=== PATIENT | female | born 1980 | race Caucasian/White ===

== ENCOUNTER 2019-09-20 00:37 | Emergency (ER) | payer OTHER, SELFPAY ==
[2019-09-20] VITALS (7 sets, daily range): BP systolic 132–157; BP diastolic 89–99; PULSE 80–89; RESP 14–19; TEMP 36.6–36.8; O2SAT 94–100
--- NOTE | ~2019-09-20 | CT_ITS ---
EXAMINATION: CT brain wo con DATE: 09/20/2019 01:05 INDICATION: Left arm numbness and tingling. TECHNIQUE: Computed tomography (CT) of the head was performed without intravenous contrast. The mA wa s adjusted according to patient size. Iterative reconstruction technique was employed. The dose-lengt h product was 605.33 mGy-cm. COMPARISON: None FINDINGS: There is no intracranial hemorrhage, acute infarction, or abnormal intracranial mass lesion . The ventricles are normal in size. The paranasal sinuses are clear. The orbits are normal. The mast oid air cells are normal. IMPRESSION: 1. Normal brain. Reviewed, dictated and finalized at location A. IMPRESSION: 1. Normal brain.
--- NOTE | ~2019-09-20 | XR_ITS ---
EXAMINATION: XR chest 1V portable DATE: 09/20/2019 01:09 INDICATION: Chest pain. Shortness of breath. TECHNIQUE: A single frontal view of the chest was obtained. COMPARISON: Chest CT 09/20/2019 FINDINGS: The chest demonstrates clear lungs without pneumonia, pleural effusion, or pneumothorax. Th e heart size is normal. IMPRESSION: 1. No acute cardiopulmonary disease. Reviewed, dictated and finalized at location A.
--- NOTE | ~2019-09-20 | CT_ITS ---
EXAMINATION: CTA chest PE protocol DATE: 09/20/2019 01:45 INDICATION: Chest pain. TECHNIQUE: Computed tomography angiography (CTA) of the chest was performed with 100 mL Omnipaque-350 intravenous contrast timed to evaluate the pulmonary arteries. Coronal maximum intensity projection 3D-reconstructions were created by the technologist. Automated exposure control and iterative reconst ruction technique were employed. The dose-length product was 725.81 mGy-cm. COMPARISON: Chest single view 09/20/2019 FINDINGS: There is mild atelectasis in right lower lobe and lingula. No pleural effusion. The heart s ize is normal. No pericardial effusion. There is no pulmonary embolus. At C6, there is an esophageal diverticulum on the left. There is a small sliding hiatal hernia. There is mild thoracic spondylosis. IMPRESSION: 1. No pulmonary embolus. 2. Esophageal diverticulum on the left at C6. 3. Small sliding hiatal hernia. Reviewed, dictated and finalized at location A.
--- NOTE | 2019-09-20 00:49 | ED.CHESTPAIN ---
HPI - Chest Pain General Chief Complaint: Chest Pain Stated Complaint: left side numbness/chest pain Time Seen by Provider: 09/20/19 00:48 Source: patient and RN notes reviewed Mode of arrival: ambulatory Limitations: no limitations History of Present Illness HPI narrative: Pt is a 38 y/o female who presents to the ED with c/o lt sided chest pain starting this morning. She notes that she felt normal throughout the day yesterday. Pt states that she was laying down to go to sleep roughly 1 hour ago, when she suddenly developed pain in the lt side of her chest and numbness/tingling in her lt arm and lt leg. She describes her pain as a pressure and her numbness as pins and needles. Pt states that she has been able to walk normally. She also currently reports nausea, but denies any fever or chills. Pt states that she has had HTN in the past, but notes that she isn't currently taking any BP medications. MD complaint: chest pain Onset (ago): hour(s) (1) Onset: during rest Pain location: left chest Quality: other (pressure) Associated symptoms: nausea and other (numbness/tingling in lt arm and lt leg) Treatment prior to arrival: none Related Data Home Medications Medication Instructions Recorded Confirmed metformin 500 mg PO BID 09/20/19 09/20/19 Allergies Allergy/AdvReac Type Severity Reaction Status Date / Time ciprofloxacin AdvReac Rash Verified 09/20/19 02:18 Review of Systems Review of Systems: All systems reviewed & are unremarkable except as noted in HPI and below Constitutional: Constitutional: Denies chills and Denies fever(s) Cardiovascular: Cardiovascular: Reports chest pain (lt sided chest pressure) Gastrointestinal: Gastrointestinal: Reports nausea Neurologic: Reports numbness (lt arm and lt leg) and Reports tingling (lt arm and lt leg) [facility] Past Medical History Medical History (Updated 09/20/19 @ 04:26 by Justice Rachel DO) PCOS (polycystic ovarian syndrome) Surgical History Surgical History No significant past surgical history Family History Family History (Updated 04/16/18 @ 10:29 by DOCTOR UNKNOWN) Mother Hypertension Family history of alcoholism Father Hypertension Social History Social History Smoking status: Never smoker Alcohol intake: never Gender identity (if verbalized by the patient): Female Exam Narrative: Exam Narrative: APPEARANCE: No acute distress, nontoxic, resting in bed HEENT: Normocephalic, atraumatic, OMM, TMs clear bilaterally EYES: PERRL, EOMI NECK: Supple, nontender, full range of motion without pain, no meningismus RESPIRATORY: No respiratory distress, clear to auscultation bilaterally with no rhonchi wheezing or rales CARDIOVASCULAR: RRR s murmur ABDOMINAL: Soft, nontender, nondistended MUSCULOSKELETAL: Moves all extremities. No clubbing, cyanosis or edema. NEURO: A and O ?3, following commands, speech normal, cranial nerves II through XII grossly intact,muscle strength 5 out of 5 bilateral upper and lower extremities no pronator drift, pinprick sensation equal bilateral upper and lower extremities SKIN:: Warm, dry. Normal Color PSYCHIATRIC: Normal affect/mood Course Course Emergency Course: Patient with ABCD score of [address] Gagnon presentation work-up. At this time with current Covid pandemic recommends against admission with low ABCD score and recommends 3-hour troponin and patient be discharged with follow-up with her PCP Called discussed with Dr. Yanes presentation work-up. She agrees with plan for discharge and follow-up as an outpatient. Recommends patient be on aspirin 81 mg daily Discussed with patient results of workup and diagnosis. Discussed need for follow-up with primary care, proper use of medication, and reasons to return to the emergency department. Patient understands and agrees to current treatment plan Reevaluation(s)
--- NOTE | 2019-09-20 00:51 | ECG_ITS ---
Measurements Intervals [place] Rate: 83 P: [place]: 0 QRS: -25 QRSD: 101 T: 25 QT: 420 QTc: 495 Interpretive Statements SINUS RHYTHM VOLTAGE CRITERIA FOR LVH NONSPECIFIC ST & T-WAVE ABNORMALITY- INF/LAT LEADS BASELINE ARTIFACT- V6 ABNORMAL ECG Electronically Signed On 09-20-2019 7:03:03 CDT by Angus Potter D.O.
[2019-09-20 01:08] LABS: Basophils Absolute Auto 0.1 K/mm3 (0.0-0.1); Basophils Percent Auto 0.7 % (0.2-1.2); Eosinophils Absolute Auto 0.4 K/mm3 (0-0.3); Eosinophils Percent Auto 4.1 % (0-4.4); Hematocrit 41.8 % (37.0-47.0); Hemoglobin 13.7 g/dL (12.0-15.0); Immature Granulocyte Absolute 0.03 K/mm3 (0.00-0.031); Immature Granulocyte Percent A 0.4 % (0-0.5); Mean Corpuscular HGB Conc 32.8 g/dl (32-36); Mean Corpuscular Hemoglobin 28.3 pg (26-34); Mean Corpuscular Volume 86.4 fl (80-100); Mean Platelet Volume 9.6 fl (7.4-10.4); Monocytes Absolute Auto 0.6 K/mm3 (0.1-0.6); Monocytes Percent Auto 7.4 % (2.6-8.5); Neutrophils Percent Auto 46.4 % (45.5-73.1); Platelet Count Result 288 k/mm3 (150-375); Red Blood Count 4.84 M/mm3 (4.2-5.4); Red Cell Distribution Width 12.5 % (11.5-14.5); White Blood Count 8.5 K/mm3 (4.5-10.0)
[2019-09-20 01:10] LABS: INR 0.9; Prothrombin Time 11.6 Seconds (11.1-14.7)
[2019-09-20 01:11] LABS: Partial Thromboplastin Time 30.6 SECONDS (22.3-36.8)
[2019-09-20 01:16] LABS: Blood Urea Nitrogen 13 mg/dL (7-17); Carbon Dioxide 26 mmol/L (22-30); Chloride 102 mmol/L (98-107); Estimated CRCL calculation 106 ml/min; Estimated Glomerular Filt Rate > 60; Glucose 140 mg/dL (65-105); Potassium 3.3 mmol/L (3.4-5.0); Sodium 139 mmol/L (137-145)
[2019-09-20 01:27] LABS: Troponin I < 0.012 ng/mL (0.000-0.034)
[2019-09-20] MEDS: POTASSIUM CHLORIDE 20 MEQ TABLET PO (03:53)
[2019-09-20] MEDS: ASPIRIN 81 MG CHEWABLE TABLET 324 MG PO (03:53)
[2019-09-20 04:05] LABS: Troponin I < 0.012 ng/mL (0.000-0.034)
[2019-09-20 05:09] LABS: Cholesterol 208 mg/dL (0-200); HDL Direct 42 mg/dL; Triglycerides 101 mg/dL (<150)
[2019-09-20 05:17] LABS: Hemoglobin A1C 5.8 % (<5.7)
[2019-09-20 05:20] LABS: LDL Cholesterol Direct 137 mg/dL
== END 2019-09-20 04:40 | disposition home or self-care (01) ==
PROVIDERS: Emergency Provider Emergency Medicine; PCP Family Medicine
DX: R20.2 Paresthesia of skin (principal); R07.89 Other chest pain; E28.2 Polycystic ovarian syndrome; R94.31 Abnormal electrocardiogram [ECG] [EKG]; K22.5 Diverticulum of esophagus, acquired; K44.9 Diaphragmatic hernia without obstruction or gangrene
CPT/HCPCS: 36415; 70450; 71045; 71275; 80048; 80061; 82607; 83036; 84443; 84484; 85025; 85610; 85730; 93005; 99284; A9270; Q9967

== ENCOUNTER 2019-10-09 11:12 | Outpatient (CLI) | payer OTHER, SELFPAY ==
[2019-10-09 11:43] LABS: Blood Urea Nitrogen 10 mg/dL (7-17); Calcium 9.1 mg/dL (8.4-10.2); Carbon Dioxide 27 mmol/L (22-30); Chloride 105 mmol/L (98-107); Estimated Glomerular Filt Rate > 60; Glucose 102 mg/dL (65-105); Magnesium 1.9 mg/dL (1.6-2.3); Potassium 4.3 mmol/L (3.4-5.0); Sodium 139 mmol/L (137-145)
== END 2019-10-09 11:13 | disposition home or self-care (01) ==
PROVIDERS: PCP Family Medicine; Visit Provider Family Medicine
DX: I10 Essential (primary) hypertension (principal); E87.5 Hyperkalemia; R25.2 Cramp and spasm
CPT/HCPCS: 36415; 80048; 83735

== ENCOUNTER 2020-01-01 07:34 | Outpatient (CLI) | payer OTHER, SELFPAY ==
--- NOTE | ~2020-01-01 | NM_ITS ---
NM stress w perf spect multi Procedure: The patient was stressed using Modified Josse protocol. Prior to the end of exercise 31.5 mCi Tc 99m IV administered. Rest imaging performed following administration of 10.6 mCi Tc 99m IV. Images were reformatted into short axis, horizontal and vertical long axis sections for visual and q uantitative analysis. Indication: Chest pain Comparison: None Findings: Computer assisted qualitative and quantitative analysis of the immediate and delayed images revealed normal left ventricular perfusion without evidence of fixed or reversible perfusion abnorma lity to suggest ischemia or infarction. Normal left ventricular cavity size, wall motion and ejectio n fraction. Left ventricular ejection fraction measures 59. Impression: 1: No scintigraphic evidence of resting or stress induced perfusion abnormality. 2: Normal left ventricle ejection fraction measuring 59%. Reviewed, dictated and finalized at location B. Impression: 1: No scintigraphic evidence of resting or stress induced perfusion abnormality . 2: Normal left ventricle ejection fraction measuring 59%.
--- NOTE | 2020-01-01 09:18 | EST_ITS ---
Patient Info Name: Kavitha Brantley Age: 39 years : 1980 Gender: Female Ht: 65 in Wt: 191 lbs BSA: 2.02 m2 Exam Date: 01/01/2020 9:20 AM Exam Location: [facility] Stress Patient Status: Outpatient Admit Date: 01/01/2020 Staff Ordering Physician: Enedina Perdomo MD Attending Provider: Enedina Perdomo MD Exercise Technologist: Matti Momin RDCS, RT Exercise Physician: Angus Potter DO Exam Type: CA stress test treadmill w NM Study Info A treadmill exercise stress test was performed. Summary 1. 1. Negative Josse exercise stress test for ischemic ST changes by ECG criteria. 2. 2. Good functional capacity, achieving 11 METs of workload. 3. 3. Appropriate HR response to exercise. 4. 4. Appropriate HR recovery at 1 minute post exercise. 5. 5. Nuclear scan to follow and will be reported separately. Please correlate with it. 6. 6. Patient informed of the above results. Protocol: Josse Stress ECG Details Stage: REST Duration (min): 1 min : 16 sec Speed (mph): 0.0 Grade (%): 0 HR (bpm): 65 SBP (mmHg): 132 DBP (mmHg): 86 METS: --- Stage: REST Duration (min): 2 min : 38 sec Speed (mph): 0.0 Grade (%): 0 HR (bpm): 73 SBP (mmHg): 132 DBP (mmHg): 86 METS: --- Stage: STAGE 1 Duration (min): 1 min : 0 sec Speed (mph): 1.7 Grade (%): 10 HR (bpm): 98 SBP (mmHg): 132 DBP (mmHg): 86 METS: --- Stage: STAGE 1 Duration (min): 2 min : 0 sec Speed (mph): 1.7 Grade (%): 10 HR (bpm): 103 SBP (mmHg): 132 DBP (mmHg): 86 METS: --- Stage: STAGE 1 Duration (min): 3 min : 0 sec Speed (mph): 1.7 Grade (%): 10 HR (bpm): 103 SBP (mmHg): 150 DBP (mmHg): 74 METS: --- Stage: STAGE 2 Duration (min): 1 min : 0 sec Speed (mph): 2.5 Grade (%): 12 HR (bpm): 113 SBP (mmHg): 150 DBP (mmHg): 74 METS: --- Stage: STAGE 2 Duration (min): 2 min : 0 sec Speed (mph): 2.5 Grade (%): 12 HR (bpm): 127 SBP (mmHg): 153 DBP (mmHg): 70 METS: --- Stage: STAGE 2 Duration (min): 3 min : 0 sec Speed (mph): 2.5 Grade (%): 12 HR (bpm): 130 SBP (mmHg): 153 DBP (mmHg): 70 METS: --- Stage: STAGE 3 Duration (min): 1 min : 0 sec Speed (mph): 3.4 Grade (%): 14 HR (bpm): 138 SBP (mmHg): 136 DBP (mmHg): 87 METS: --- Stage: STAGE 3 Duration (min): 2 min : 0 sec Speed (mph): 3.4 Grade (%): 14 HR (bpm): 152 SBP (mmHg): 136 DBP (mmHg): 87 METS: --- Stage: STAGE 3 Duration (min): 3 min : 0 sec Speed (mph): 3.4 Grade (%): 14 HR (bpm): 160 SBP (mmHg): 163 DBP (mmHg): 86 METS: --- Stage: STAGE 4 Duration (min): 0 min : 35 sec Speed (mph): 4.2 Grade (%): 16 HR (bpm): 163 SBP (mmHg): 163 DBP (mmHg): 86 METS: --- Stage: RECOVERY Duration (min): 0 min : 24 sec
== END 2020-01-01 07:35 | disposition home or self-care (01) ==
LOC: ANHCARD 07:40
PROVIDERS: PCP Family Medicine; Visit Provider Family Medicine
DX: R07.9 Chest pain, unspecified (principal); R94.31 Abnormal electrocardiogram [ECG] [EKG]
CPT/HCPCS: 78452; 93017; A9502

== ENCOUNTER 2023-03-17 08:36 | Outpatient (CLI) | payer OTHER, SELFPAY ==
[2023-03-17 16:39] LABS: Basophils Absolute Auto 0.1 K/mm3 (0.0-0.1); Eosinophils Absolute Auto 0.3 K/mm3 (0-0.3); Eosinophils Percent Auto 3.6 % (0-4.4); Hematocrit 39.1 % (37.0-47.0); Hemoglobin 12.5 g/dL (12.0-15.0); Immature Granulocyte Absolute 0.01 K/mm3 (0.00-0.031); Immature Granulocyte Percent A 0.1 % (0-0.5); Lymphocytes Absolute Auto 2.01 K/mm3 (0.9-3.2); Mean Corpuscular Hemoglobin 27.1 pg (26-34); Mean Corpuscular Volume 84.6 fl (80-100); Monocytes Absolute Auto 0.5 K/mm3 (0.1-0.6); Monocytes Percent Auto 5.8 % (2.6-8.5); Neutrophils Absolute Auto 5.5 K/mm3 (1.3-6.7); Neutrophils Percent Auto 65.5 % (45.5-73.1); Platelet Count Result 241 k/mm3 (150-375); Red Blood Count 4.62 M/mm3 (4.2-5.4); Red Cell Distribution Width 13.6 % (11.5-14.5); White Blood Count 8.4 K/mm3 (4.5-10.0)
[2023-03-17 20:13] LABS: Alanine Aminotransferase 17 U/L (6-35); Albumin Level 4.8 g/dL (3.5-5.1); Alkaline Phosphatase 58 U/L (38-126); Anion Gap 9 mmol/L (8-16); Aspartate Amino Transferase 23 U/L (14-36); Bilirubin,Total 0.4 mg/dL (0.2-1.3); Blood Urea Nitrogen 11 mg/dL (7-17); Calcium 8.9 mg/dL (8.4-10.2); Carbon Dioxide 23 mmol/L (22-30); Chloride 106 mmol/L (98-107); Cholesterol 211 mg/dL (0-200); Estimated Glomerular Filt Rate > 60; Glucose 92 mg/dL (65-110); HDL Direct 33 mg/dL; Potassium 3.9 mmol/L (3.4-5.0); Sodium 138 mmol/L (137-145); Triglycerides 171 mg/dL (<150)
[2023-03-17 20:24] LABS: LDL Cholesterol Direct 127 mg/dL
[2023-03-21 03:48] LABS: Vitamin D 1,25 (OH)2 Total 85 pg/mL (18-72); Vitamin D2 1,25 (OH)2 <8 pg/mL; Vitamin D3 1,25 (OH)2 85 pg/mL
== END 2023-03-17 08:37 | disposition home or self-care (01) ==
LOC: ANHGOSHLAB 08:36
PROVIDERS: PCP Family Medicine; Visit Provider Nurse Practitioner Family
DX: Z00.00 Encounter for general adult medical examination without abnormal findings (principal); E55.9 Vitamin D deficiency, unspecified; E11.9 Type 2 diabetes mellitus without complications; E78.5 Hyperlipidemia, unspecified
CPT/HCPCS: 36415; 80053; 80061; 82652; 84443; 85025